=== PATIENT | female | born 1940 | race Caucasian/White ===

== ENCOUNTER 2022-01-22 01:40 | Inpatient (IN) | payer OTHER ==
[~2022-01-22] VITALS: Ht 162.6 cm; Wt 71.7 kg
[2022-01-22 01:43] VITALS: BP_SYST 145
--- NOTE | 2022-01-22 02:02 | NUR ---
Placed in room 2 . Placed on petroleum sampler, blood pressure machine and pulse oximeter. To gown for exam. Side rails up. Report given to GURDEEP ASHFORD.
--- NOTE | 2022-01-22 02:11 | NUR ---
PT IS AA&OX4. AFEBRILE. NAD, DENIES PAIN. AMBULATORY W/ STEADY GAIT. SAFE & HAZARD FREE ENVIRONMENT PROVIDED. SPOUSE AT BEDSIDE. CONNECTED TO INFORMATION COORDINATOR.
[2022-01-22] MEDS ORDERED: dilTIAZem HCL IVP 5 MG/ML VIAL IVP ONE (02:15)
[2022-01-22 02:41] LABS: BASOPHILS # (AUTO) 0.1 K/uL (0.0-0.2); EOSINOPHILS # (AUTO) 0.1 K/uL (0.0-0.4); EOSINOPHILS % (AUTO) 1.4 % (0.0-4.0); HEMATOCRIT 38.7 % (36-48); LYMPHOCYTES # (AUTO) 1.8 K/uL (1.0-5.5); LYMPHOCYTES % (AUTO) 20.6 % (20.5-51.5); MEAN CORPUSCULAR HEMOGLOBIN 30 pg (27-31); MEAN CORPUSCULAR HGB CONC 34 % (32-36); MEAN CORPUSCULAR VOLUME 90 fL (79.0-98.0); MONOCYTES % (AUTO) 11.3 % (1.7-9.3); NEUTROPHILS # (AUTO) 5.7 K/uL (1.8-7.7); NEUTROPHILS % (AUTO) 65.7 % (40.0-70.0); PLATELET COUNT (AUTO) 307 K/uL (130-430); RED BLOOD CELL COUNT(AUTO) 4.31 MIL/uL (4.2-6.2); RED CELL DISTRIBUTION WIDTH 13.6 % (9.0-15.0); WHITE BLOOD COUNT (AUTO) 8.7 K/uL (4.8-10.8)
--- NOTE | 2022-01-22 02:51 | NUR ---
# 20 gauge angiocath placed to LAC. Use of asceptic technique. Opsite placed over site. Blood return noted. Blood for lab drawn from site. Flushed with 10 cc of normal saline. No evidence of infiltration noted. Patient tolerated well.
--- NOTE | 2022-01-22 03:24 | NUR ---
COVID 19 SWAB TEST ADMINISTERED BY EILEEN PECK AND SENT TO LAB FOR ANALYSIS
[2022-01-22 03:31] LABS: ANION GAP 9 (5-15); CHLORIDE 104 mmol/L (98-107); CREATININE 0.99 mg/dL (0.55-1.30); GLUCOSE 120 mg/dL (70-99); UREA NITROGEN, BLOOD 31 mg/dL (8-21)
[2022-01-22 03:40] LABS: ALANINE AMINOTRANSFERASE 41 U/L (12-78); ALBUMIN 3.3 g/dL (3.4-4.8); ASPARTATE AMINOTRANSFERASE 37 U/L (10-37); TOTAL BILIRUBIN 0.3 mg/dL (0.0-1.0)
[2022-01-22] MEDS ORDERED: POTASSIUM CHLORIDE 20 MEQ TAB.PRT.SR PO ONE (04:30)
[2022-01-22] MEDS ORDERED: METOPROLOL TARTRATE 25 MG TABLET PO ONE (04:30)
[2022-01-22] MEDS ORDERED: NS 500 ML IV ONE (04:30)
[2022-01-22] MEDS ORDERED: METOPROLOL TARTRATE 25 MG TABLET ONE (04:36)
[2022-01-22] MEDS ORDERED: POTASSIUM CHLORIDE 20 MEQ TAB.PRT.SR ONE (04:36)
[2022-01-22] MEDS ORDERED: CALC1CAP19 PO (04:45)
[2022-01-22] MEDS ORDERED: HYDR12.585 PO (04:45)
[2022-01-22] MEDS ORDERED: METO-442 PO (04:45)
[2022-01-22] MEDS ORDERED: TOP25 PO (04:45)
[2022-01-22] MEDS ORDERED: RALO60TA PO (04:45)
[2022-01-22] MEDS ORDERED: VITD2000 PO ×2 (04:49→05:09)
[2022-01-22] MEDS ORDERED: MV-M1TAB19 PO (04:49)
[2022-01-22] MEDS ORDERED: OMEG-81 PO (04:49)
--- NOTE | 2022-01-22 05:00 | NUR ---
# 18 gauge angiocath placed to R AC. Use of asceptic technique. Opsite placed over site. Blood return noted. Flushed with 10 cc of normal saline. No evidence of infiltration noted. Patient tolerated well.
--- NOTE | 2022-01-22 05:00 | NUR ---
Admit bed requested Patient will be admitted to care of . Admitted to TELE unit. Diagnosis: NEW ONSET AFIB Inpatient: Yes Observation : No Orientation concerns or request close to nursing station : No Covid Status: NO On vent or bipap: NO Isolation requirements: NO Needs a sitter :NO From Home :Yes Requires Dialysis : No Med Rec Completed : Yes
[2022-01-22] MEDS ORDERED: FERR236T3 PO (05:09)
[2022-01-22] MEDS ORDERED: MULT-1117 PO (05:09)
[2022-01-22] MEDS ORDERED: L.RH1CAP PO (05:09)
[2022-01-22] MEDS ORDERED: VIT1CAPS46 PO (05:09)
[2022-01-22] MEDS ORDERED: VITA400T9 PO (05:09)
[2022-01-22] MEDS ORDERED: TURM1CAP2 PO (05:09)
[2022-01-22] MEDS ORDERED: OMEG-158 PO (05:09)
--- NOTE | 2022-01-22 05:37 | NUR ---
Medication reconciliation completed with information provided by PATIENT. Any prior medication reconciliation on file was reviewed and corrected.
[2022-01-22] MEDS ORDERED: NACL 0.9% 1,000 ML IV SCH (06:00)
--- NOTE | 2022-01-22 07:01 | NUR ---
PT IS COMFORTABLY SLEEPING. NAD, AFEBRILE. SAFE & HAZARD FREE ENVIROMENT PROVIDED. KEPT COMFORTABLE. CONNECTED TO CONFERENCE CENTER COORDINATOR. VSS
--- NOTE | 2022-01-22 07:05 | NUR ---
CAT Monge at bedside examining patient.
--- NOTE | 2022-01-22 07:14 | NUR ---
REPORT GIVEN TO MAKEDA CAMPBELL.
--- NOTE | 2022-01-22 07:15 | NUR ---
RECEIVED PT STABLE, NAD, VSS, AAOX3, AWAITING ADDITIONAL ASSESSMENT WITH DISPOSITION WITH PLAN OF CARE.
[2022-01-22] MEDS ORDERED: AMIODARONE HCL 200 MG TABLET PO ONE (10:00)
[2022-01-22] MEDS ORDERED: POTASSIUM CHLORIDE 20 MEQ/PKT PACKET PO ONE (10:00)
[2022-01-22 11:30] VITALS: BP_SYST 125
--- NOTE | 2022-01-22 11:30 | NUR ---
ADMISSION NOTE Received patient from ER via lesley, received report from AUTOMATIC FANCY MACHINE OPERATOR. Patient admitted with diagnosis of new onset atrial fibrillation to telemetry. Right antecubital IV site is patent and intact. Patient oriented to hospital routine, call light, toileting and safety-patient verbalized understanding. She reports no pain or discomfort at this time. Admission process initiated. school lunch monitor placed.
--- NOTE | 2022-01-22 11:38 | NUR ---
Patient will be admitted to care of DR. PARSONS. Admitted to Telemetry unit. Will go to room 109B. Belongings list completed. Complete and up to date summary report printed. SBAR report to be given at bedside with opportunity for questions.
[2022-01-22] MEDS ORDERED: LOPERAMIDE HCL 2 MG CAPSULE PO ONE (11:45)
[2022-01-22] MEDS ORDERED: LOPERAMIDE HCL 2 MG CAPSULE PO PRN (11:45)
--- NOTE | 2022-01-22 11:49 | NUR ---
CONSULTATION PAGED/CALLED Reason for Consultation: [] AFIB Person Who was Notified: [] DARNELL Consulting Physician: [] DR SHORE Product Examiner Specialty: [] CARDIO Ordering Physician: [] DR PARSONS
[2022-01-22] MEDS: LR 1,000 ML IV SCH (12:27)
[2022-01-22] MEDS: AMIODARONE HCL 200 MG TABLET PO SCH ×2 (14:32→22:34)
[2022-01-22 15:28] VITALS: BP_SYST 129
[2022-01-22 16:28] LABS: BILIRUBIN,URINE NEGATIVE (NEGATIVE); BLOOD, URINE NEGATIVE (NEGATIVE); CLARITY/URINE CLEAR (CLEAR); COLOR,URINE YELLOW (YELLOW); GLUCOSE,URINE NEGATIVE (NEGATIVE); KETONES,URINE NEGATIVE (NEGATIVE); LEUKOCYTE ESTERASE ,URINE 1+ (NEGATIVE); NITRITE, URINE NEGATIVE (NEGATIVE); PROTEIN URINE NEGATIVE (NEGATIVE); UROBILINOGEN,URINE 0.2 (0.2-1.0)
[2022-01-22 16:44] LABS: BACTERIA,URINE None Seen /HPF (None Seen); MUCUS,URINE None Seen /LPF (None Seen); WBC,URINE 0-3 /HPF (0-3)
[2022-01-22] MEDS ORDERED: METOPROLOL TARTRATE 50 MG TABLET PO SCH (17:00)
[2022-01-22] MEDS: RIVAROXABAN 10 MG TABLET PO SCH (17:55)
--- NOTE | 2022-01-22 18:59 | NUR ---
CLOSING NOTE Patient is currently laying in bed, eating dinner. She denies pain or discomfort at this time. IV site intact, clean, dry. Fluids ongoing. Vital signs stable at this time. at bedside. Call light within reach. All safety precautions observed.
[2022-01-22 20:00] VITALS: BP_SYST 110
--- NOTE | 2022-01-22 20:00 | NUR ---
pt is alert oriented x 4. ambulatory on room air. anxious about the result Echo result. pt is cooperative, bed low.
[2022-01-22] MEDS: CALCIUM CARBONATE/VITAMIN D3 1 TAB TABLET PO SCH (21:00)
[2022-01-22] MEDS: METOPROLOL SUCCINATE 50 MG TAB.SR.24H (TOPROL XL) PO SCH (22:33)
[2022-01-23] VITALS: BP_SYST 118
[2022-01-23] MEDS: LR 1,000 ML IV SCH ×3 (02:00→17:45)
[2022-01-23] MEDS ORDERED: TOPIRAMATE 25 MG TABLET(TOPAMAX) ONE (05:02)
[2022-01-23] MEDS ORDERED: TOPIRAMATE 25 MG TABLET(TOPAMAX) PO ONE (06:00)
[2022-01-23] MEDS: AMIODARONE HCL 200 MG TABLET PO SCH ×3 (06:47→21:08)
--- NOTE | 2022-01-23 07:35 | NUR ---
OPENING NOTE Received report from security shift manager. Upon entering room, patient is observed awake, alert, and oriented, in bed. She denies current any pain or discomfort at this time. Call light within reach. All safety precautions observed.
[2022-01-23 08:05] LABS: BASOPHILS % (AUTO) 0.8 % (0.0-2.0); EOSINOPHILS # (AUTO) 0.1 K/uL (0.0-0.4); EOSINOPHILS % (AUTO) 2.5 % (0.0-4.0); HEMATOCRIT 36.2 % (36-48); HEMOGLOBIN 12.3 g/dL (12.0-16.0); LYMPHOCYTES # (AUTO) 1.2 K/uL (1.0-5.5); LYMPHOCYTES % (AUTO) 26.3 % (20.5-51.5); MEAN CORPUSCULAR HEMOGLOBIN 30 pg (27-31); MEAN CORPUSCULAR HGB CONC 34 % (32-36); MEAN CORPUSCULAR VOLUME 89 fL (79.0-98.0); MONOCYTES # (AUTO) 0.5 K/uL (0.0-1.0); MONOCYTES % (AUTO) 11.4 % (1.7-9.3); NEUTROPHILS # (AUTO) 2.7 K/uL (1.8-7.7); PLATELET COUNT (AUTO) 252 K/uL (130-430); RED BLOOD CELL COUNT(AUTO) 4.06 MIL/uL (4.2-6.2); RED CELL DISTRIBUTION WIDTH 13.7 % (9.0-15.0); WHITE BLOOD COUNT (AUTO) 4.6 K/uL (4.8-10.8)
[2022-01-23 08:10] VITALS: BP_SYST 136
[2022-01-23 08:24] LABS: INR 1.1 (0.8-1.2); PROTHROMBIN TIME 11.6 SECS (9.5-12.5)
[2022-01-23 08:30] LABS: ALANINE AMINOTRANSFERASE 31 U/L (12-78); ANION GAP 8 (5-15); ASPARTATE AMINOTRANSFERASE 23 U/L (10-37); CALCIUM 8.1 mg/dL (8.4-11.0); CHLORIDE 108 mmol/L (98-107); CHOLESTEROL 144 mg/dL (<200); CREATININE 0.82 mg/dL (0.55-1.30); FREE T4 (FREE THYROXINE) 1.1 ng/dL (0.6-1.6); GLUCOSE 100 mg/dL (70-99); HDL CHOLESTEROL 59 mg/dL (>55); LDL CHOLESTEROL 68 mg/dL (<100); THYROID STIMULATING HORMONE 3.52 uIu/mL (0.34-4.82); TOTAL BILIRUBIN 0.6 mg/dL (0.0-1.0); TRIGLYCERIDES 109 mg/dL (30-150); UREA NITROGEN, BLOOD 16 mg/dL (8-21)
[2022-01-23] MEDS ORDERED: TOPIRAMATE 25 MG TABLET(TOPAMAX) PO SCH ×2 (09:00→21:00)
[2022-01-23] MEDS ORDERED: METOPROLOL SUCCINATE 50 MG TAB.SR.24H (TOPROL XL) PO SCH (09:00)
[2022-01-23] MEDS ORDERED: RALOXIFENE HCL 60 MG TABLET (EVISTA) PO SCH ×2 (09:00→21:00)
[2022-01-23] MEDS: METOPROLOL SUCCINATE 50 MG TAB.SR.24H (TOPROL XL) PO SCH ×2 (09:07→21:09)
[2022-01-23] MEDS: CALCIUM CARBONATE/VITAMIN D3 1 TAB TABLET PO SCH ×2 (09:07→21:10)
[2022-01-23] MEDS: OMEGA-3/DHA/EPA/FISH OIL 1 GM CAPSULE PO SCH (09:08)
[2022-01-23] MEDS: FERROUS SULFATE 325 MG TABLET.DR PO SCH (09:08)
[2022-01-23] MEDS: MULTIVITAMINS TAB 1 TABLET PO SCH (09:08)
[2022-01-23] MEDS: LACTOBACILLUS RHAMNOSUS GG 1 CAP CAPSULE PO SCH (09:08)
[2022-01-23] MEDS: CHOLECALCIFEROL (VITAMIN D3) 2,000 UNIT TABLET PO SCH (09:08)
--- NOTE | 2022-01-23 11:30 | NUR ---
MIDDAY OBSERVATION Patient sitting calmly in bed. Denies pain or discomfort. Call light within reach. Safety precautions observed.
--- NOTE | 2022-01-23 15:15 | NUR ---
IV REMOVED IV leaking. No s/s infiltration. Unable to restart IV. Asked ICU to restart. Addendum: 01/23/22 at 1906 by Oscar Patel RN Fluids held.
[2022-01-23] MEDS: RIVAROXABAN 10 MG TABLET PO SCH (17:36)
[2022-01-23 18:56] VITALS: BP_SYST 110
--- NOTE | 2022-01-23 19:06 | NUR ---
CLOSING NOTE Patient laying in bed eating dinner. She denies pain or discomfort. No IV site at this time. Call light within reach. Safety precautions observed. at bedside.
--- NOTE | 2022-01-23 19:07 | NUR ---
Patient requests to move to window. Charge nurse notified. Patient to move once bed is cleaned.
--- NOTE | 2022-01-23 19:15 | NUR ---
OPENING NOTES Patient resting in bed - no s/s pain or distress noted. Respirations even and unlabored - head of bed elevated. No IV SITE. Bed locked and in lowest position. Call light within reach.
[2022-01-23 20:00] VITALS: BP_SYST 122
--- NOTE | 2022-01-23 22:00 | NUR ---
new iv inserted lfa 22g
[2022-01-24] VITALS: BP_SYST 133
[2022-01-24] MEDS: LR 1,000 ML IV SCH (01:51)
[2022-01-24] MEDS: AMIODARONE HCL 200 MG TABLET PO SCH (06:14)
--- NOTE | 2022-01-24 07:26 | NUR ---
CLOSING NOTES Patient resting in bed - no s/s pain or distress noted. Respirations even and unlabored - head of bed elevated. IV site patent - no s/s redness, infection, or infiltration. Bed locked and in lowest position. Call light within reach. At 0605 patient moved from B bed to C bed.
[2022-01-24 08:00] VITALS: BP_SYST 114
--- NOTE | 2022-01-24 08:00 | NUR ---
Miss Kidd has been assessed as indicated. she denies pain. She has been noted to be both pleasant and cooperative. Her is at the bedside. She has no chest pain. she is resting quietly with no s/s of distress or discomfort. She anticipates being DC to home today.
--- NOTE | 2022-01-24 09:00 | NUR ---
Miss Kidd has converted to Sinus Rhythm
[2022-01-24] MEDS: CALCIUM CARBONATE/VITAMIN D3 1 TAB TABLET PO SCH (10:21)
[2022-01-24] MEDS: MULTIVITAMINS TAB 1 TABLET PO SCH (10:21)
[2022-01-24] MEDS: OMEGA-3/DHA/EPA/FISH OIL 1 GM CAPSULE PO SCH (10:22)
[2022-01-24] MEDS: LACTOBACILLUS RHAMNOSUS GG 1 CAP CAPSULE PO SCH (10:22)
[2022-01-24] MEDS: CHOLECALCIFEROL (VITAMIN D3) 2,000 UNIT TABLET PO SCH (10:22)
[2022-01-24] MEDS: METOPROLOL SUCCINATE 50 MG TAB.SR.24H (TOPROL XL) PO SCH (10:24)
[2022-01-24] MEDS: FERROUS SULFATE 325 MG TABLET.DR PO SCH (10:24)
[2022-01-24 12:00] VITALS: BP_SYST 116
[2022-01-24] MEDS ORDERED: AMIO200T61 PO (13:32)
[2022-01-24] MEDS ORDERED: RIVA10TA PO (13:32)
[2022-01-24 13:57] VITALS: BP_SYST 111
--- NOTE | 2022-01-24 14:45 | NUR ---
Miss Kidd has been DC to home. DC instructions have been reviewed with her and her . IV access was removed.Home going Beta viki medication has been reviewed. Per Dr. Phillips she is to return to her pre admission dose and strength of Lopressor. She was provided with new prescriptions of Amiodarone as well as Xarelto. She expressed that she understood that she should arrange an appointment with her volleyball player as well as her PCP. She signed a document to indicate that she understood her home going instructions. She was compliant with the plan to DC. She was escorted to the front door via WC by staff. At the time of DC she had no s/s of distress or discomfort. She was driven home in a private vehicle by her
[2022-01-24] MEDS ORDERED: AMIODARONE HCL 200 MG TABLET PO SCH (21:00)
== END 2022-01-24 14:48 | disposition home or self-care (01) | DRG 392 ==
LOC: SED 01:40 → STU 04:23
PROVIDERS: ADMIT Internal Medicine; ATTEND Internal Medicine
DX: A08.4 Viral intestinal infection, unspecified (principal); E87.6 Hypokalemia; I48.91 Unspecified atrial fibrillation; Z20.822 Contact with and (suspected) exposure to COVID-19; I10 Essential (primary) hypertension; Z79.01 Long term (current) use of anticoagulants; Z79.899 Other long term (current) drug therapy
CPT/HCPCS: 36415; 71045; 80053; 80061; 81000; 83735; 84439; 84443; 84484; 85025; 85610-TC; 85730-TC; 93005; 93306; 96361; 96374; 99285; G0378; J3490; J7120